=== PATIENT | female | born 1990 | race Two or more races ===

== ENCOUNTER 2025-07-26 10:37 | Emergency (ER) | payer MEDICARE, MEDICAID ==
[~2025-07-26] VITALS: Ht 182.9 cm; Wt 73.0 kg
[2025-07-26 10:45] VITALS: O2SAT 98
[2025-07-26 11:19] LABS: BASOPHILS % 0.2 % (0.0-2.0); EOSINOPHILS % 0.7 % (0.0-5.0); HEMATOCRIT. 36.8 % (36.0-48.0); HEMOGLOBIN. 12.5 g/dL (12.0-16.0); LYMPHOCYTES % 27.6 % (20.0-50.0); MEAN PLATELET VOLUME 6.6 fl (7.4-10.4); MONOCYTES % 7.0 % (2.0-8.0); NEUTROPHILS % 64.5 % (40.0-76.0); PLATELET 221 x1000/uL (130-400); RED BLOOD CELL COUNT 4.01 mill/uL (4.2-5.4); RED CELL DISTRIBUTION WIDTH 14.3 % (11.6-14.6)
[2025-07-26 11:44] LABS: CREATININE 0.8 mg/dL (0.6-1.0); UREA NITROGEN BLOOD 6 mg/dL (9-23)
[2025-07-26 15:02] VITALS: BP 135/82; PULSE 90; RESP 17; TEMP 37.1; O2SAT 98
== END 2025-07-26 16:43 | disposition home or self-care (01) ==
LOC: ER 10:37
DX: R44.0 Auditory hallucinations (principal); Z00.8 Encounter for other general examination
CPT/HCPCS: 36415; 80048; 80307; 80320; 80329; 85025; 99283; G0480